=== PATIENT | female | born 1945 | race Caucasian/White ===

== ENCOUNTER → 2017-01-12 | Outpatient (CLI) | payer MEDICARE, BC ==
--- NOTE | 2017-01-12 15:58 | REPMRS ---
Patient History The patient states she had a clinical breast exam in 01/16 Patient is postmenopausal. No known family history of cancer. Benign excisional biopsy of the left breast, 1992. Digital Woman Screen Mammo: January 12, 2017 - Exam #: [id number] Bilateral CC and MLO view(s) were taken. Technologist: Dione Pereira, Technologist Prior study comparison: January 12, 2016, digital woman screen mammo performed at [facility]. January 08, 2015, digital woman screen mammo performed at [facility]. FINDINGS: There are scattered fibroglandular densities. There has been no change in the appearance of the mammogram from the prior studies. There is a mild amount of residual fibroglandular tissue which is fairly symmetric. There is no interval development of dominant mass, architectural distortion, or clustered microcalcification suggestive of malignancy. ASSESSMENT: BI-RADS/ACR category 1 mammogram. Negative. Recommendation Routine screening mammogram in 1 year (for women over age 40). This mammogram was interpreted with the aid of an FDA-approved computer-aided dectection system. Electronically Signed By: Sandeep Tate MD 01/12/17 0361
== END ==
LOC: M WHC 07:36
PROVIDERS: ATTEND Nurse Practitioner Women's Health
DX: Z12.31 Encounter for screening mammogram for malignant neoplasm of breast (principal); M85.80 Other specified disorders of bone density and structure, unspecified site; Z78.0 Asymptomatic menopausal state; Z01.419 Encounter for gynecological examination (general) (routine) without abnormal findings; Z12.39 Encounter for other screening for malignant neoplasm of breast; Z12.11 Encounter for screening for malignant neoplasm of colon
CPT/HCPCS: 82270; G0202

== ENCOUNTER → 2017-01-20 | Outpatient (CLI) | payer MEDICARE, BC ==
--- NOTE | 2017-01-24 08:49 | DEXA ---
AP SPINE L1 - L4 1.015 -1.5 0.0 LT FEMUR TOTAL 0.839 -1.3 -0.1 RT FEMUR TOTAL 0.799 -1.7 -0.4 TOTAL BODY TOTAL OTHER DUAL FEMUR FRAX* ASSESSMENT Risk factors: None 10 year probability of fracture Major osteoporotic fracture 11.0 % Hip fracture 1.9 % COMMENTS: There is low bone density of the spine and hips. The decreased density of the spine does represent a significant change. The decreased density of the left hip does not represent a significant change. The increased density of the right hip does not represent a significant change. The density of the spine has decreased 5.4% since the initial exam on 06/2005. The spine density has decreased 4.2% since the most recent exam on 01/2014. The density of the left hip has increased 0.4% since the initial exam on 06/2005. The density of the left hip has decreased 0.9% since the most recent exam on 2013. The density of the right hip has decreased 2.3% since the initial exam on 2004. The density of the right hip has increased 0.4% since the most recent exam on 2013. FOLLOW-UP: Recommendation for the next bone density exam: 2 years. TISHA
== END ==
LOC: M WHC 11:12
PROVIDERS: ATTEND Nurse Practitioner Women's Health
DX: M85.80 Other specified disorders of bone density and structure, unspecified site (principal); Z78.0 Asymptomatic menopausal state

== ENCOUNTER 2017-12-27 08:57 | Day surgery (SDC) | payer MEDICARE, BC ==
[~2017-12-27 08:57] MED LIST: ACETAMINOPHEN 325 MG TAB PO; BSS with VANC/TOB/EPI for EYE CASES IR; HEALON DUET (HEALON 10MG/ML 0.55ML & HEALON ENDOCOAT 30MG/ML 0.85ML) As Ordered; LIDOCAINE 1% SDV 5 ML VIAL As Ordered; MOXIFLOXACIN IN BSS 0.25MG/0.25ML INTRACAMERAL INJ (OR EYE ONLY)(J2280) As Ordered; PHENYLEPHRINE HCL 10 % OPHTH. SOL 5ML XX; POVIDONE-IODINE 5% OPHTH PREP SOL 30ML As Ordered; TRIAMCINOLONE PRES FR 40 MG/ML 1ML(TRIESENCE)(OR EYE ONLY)(J3300 PER 1MG) As Ordered
[2017-12-27] MEDS ORDERED: fentaNYL 100 MCG/2 ML INJECTION (J3010) As Ordered ×2 (09:24)
[2017-12-27] MEDS: LIDOCAINE 3.5 % 1ML OPHTH TOPICAL GEL OU ×2 (09:25)
[2017-12-27] MEDS: PHENYLEPHRINE 2.5% OPHTH SOL 2ML XX ×2 (09:25)
[2017-12-27] MEDS: OFLOXACIN 0.3 % (OCUFLOX) OPTH SOL 5ML XX ×2 (09:25)
[2017-12-27] MEDS ORDERED: MIDAZOLAM INJ 2 MG/2 ML VIAL (J2250) As Ordered ×2 (09:25)
[2017-12-27] MEDS: CYCLOPENTOLATE 2% OPHTH SOLN 2ML BTL XX ×2 (09:26)
[2017-12-27] MEDS: TROPICAMIDE 1% OPHTH SOLN 2ML XX ×2 (09:26)
[2017-12-27] MEDS ORDERED: TRIMETHOBENZAMIDE 300 MG CAP PO ×2 (10:30)
[2017-12-27] MEDS: AcetaZOLAMIDE 500 MG ER CAP PO ×2 (10:32)
== END 2017-12-27 10:50 | disposition home or self-care (01) ==
LOC: M SDC 08:57
DX: H25.9 Unspecified age-related cataract (principal); G47.33 Obstructive sleep apnea (adult) (pediatric); Z79.899 Other long term (current) drug therapy
CPT/HCPCS: 66984

== ENCOUNTER → 2018-01-16 | Outpatient (CLI) | payer MEDICARE, BC | LOC: M WHC 13:18 | DX: Z12.31 Encounter for screening mammogram for malignant neoplasm of breast (principal); Z78.0 Asymptomatic menopausal state; Z92.89 Personal history of other medical treatment | CPT/HCPCS: 77067 ==

== ENCOUNTER 2018-01-17 07:57 | Day surgery (SDC) | payer MEDICARE, BC ==
[~2018-01-17 07:57] MED LIST changes: -BSS with VANC/TOB/EPI for EYE CASES IR; -HEALON DUET (HEALON 10MG/ML 0.55ML & HEALON ENDOCOAT 30MG/ML 0.85ML) As Ordered; -LIDOCAINE 1% SDV 5 ML VIAL As Ordered; -MOXIFLOXACIN IN BSS 0.25MG/0.25ML INTRACAMERAL INJ (OR EYE ONLY)(J2280) As Ordered; +PHENYLEPHRINE HCL 10 % OPHTH. SOL 5ML OS; -PHENYLEPHRINE HCL 10 % OPHTH. SOL 5ML XX; -POVIDONE-IODINE 5% OPHTH PREP SOL 30ML As Ordered; -TRIAMCINOLONE PRES FR 40 MG/ML 1ML(TRIESENCE)(OR EYE ONLY)(J3300 PER 1MG) As Ordered
[2018-01-17] MEDS: TROPICAMIDE 1% OPHTH SOLN 2ML OS (08:52)
[2018-01-17] MEDS: OFLOXACIN 0.3 % (OCUFLOX) OPTH SOL 5ML OS (08:52)
[2018-01-17] MEDS: PHENYLEPHRINE 2.5% OPHTH SOL 2ML OS (08:52)
[2018-01-17] MEDS: CYCLOPENTOLATE 2% OPHTH SOLN 2ML BTL OS (08:52)
[2018-01-17] MEDS: LIDOCAINE 3.5 % 1ML OPHTH TOPICAL GEL OU (08:53)
[2018-01-17] MEDS ORDERED: MIDAZOLAM INJ 2 MG/2 ML VIAL (J2250) As Ordered (10:08)
[2018-01-17] MEDS ORDERED: fentaNYL 100 MCG/2 ML INJECTION (J3010) As Ordered (10:08)
[2018-01-17] MEDS: POVIDONE-IODINE 5% OPHTH PREP SOL 30ML As Ordered (10:41)
[2018-01-17] MEDS: MOXIFLOXACIN IN BSS 0.25MG/0.25ML INTRACAMERAL INJ (OR EYE ONLY)(J2280) As Ordered (10:43)
[2018-01-17] MEDS: TRIAMCINOLONE PRES FR 40 MG/ML 1ML(TRIESENCE)(OR EYE ONLY)(J3300 PER 1MG) As Ordered (10:43)
[2018-01-17] MEDS: HEALON DUET (HEALON 10MG/ML 0.55ML & HEALON ENDOCOAT 30MG/ML 0.85ML) As Ordered (10:43)
[2018-01-17] MEDS: BSS with VANC/TOB/EPI for EYE CASES IR (10:43)
[2018-01-17] MEDS: LIDOCAINE 1% SDV 5 ML VIAL As Ordered (10:43)
[2018-01-17] MEDS: LIDOCAINE 2% W/EPIN INJ 20ML **PRES FREE XX (10:44)
[2018-01-17] MEDS ORDERED: AcetaZOLAMIDE 500 MG ER CAP As Ordered (11:00)
[2018-01-17] MEDS: AcetaZOLAMIDE 500 MG ER CAP PO (11:05)
[2018-01-17] MEDS ORDERED: ONDANSETRON 4MG/2ML VIAL (J2405) IV (11:30)
[2018-01-17] MEDS ORDERED: LR 1,000 ML IV (11:30)
[2018-01-17] MEDS ORDERED: TRIMETHOBENZAMIDE 300 MG CAP PO (11:30)
[2018-01-17] MEDS ORDERED: ACETAMINOPHEN TAB 650MG DOSE (2X325MG) PO (11:30)
== END 2018-01-17 11:22 | disposition home or self-care (01) ==
LOC: M SDC 07:57
DX: H26.9 Unspecified cataract (principal); G47.30 Sleep apnea, unspecified; Z79.899 Other long term (current) drug therapy
CPT/HCPCS: 66984

== ENCOUNTER → 2019-01-24 | Outpatient (CLI) | payer MEDICARE, BC ==
[~2019-01-24] MED LIST changes: -ACETAMINOPHEN 325 MG TAB PO; -PHENYLEPHRINE HCL 10 % OPHTH. SOL 5ML OS; +VITA100067 PO; +ZOLO50TA PO
--- NOTE | 2019-01-24 15:00 | REPMRS ---
Patient History The patient states she had a clinical breast exam in 12/2018. No known family history of cancer. Benign excisional biopsy of the left breast, 1992. 3D TOMOSYNTHESIS WAS PERFORMED.. Digital Woman Screen Mammo: January 24, 2019 - Exam #: [id number] Bilateral CC and MLO view(s) were taken. Technologist: Nissa Mclain, Technologist Prior study comparison: January 16, 2018, digital woman screen mammo performed at [facility]. January 12, 2017, digital woman screen mammo performed at [facility]. FINDINGS: The breast tissue is heterogeneously dense. This may lower the sensitivity of mammography. There has been no change in the appearance of the mammogram from the prior studies. There is a moderate amount of residual fibroglandular tissue which is fairly symmetric. There is no interval development of dominant mass, areas of architectural distortion, or clustered microcalcification typical of malignancy. Assessment: BI-RADS/ACR category 1 mammogram. Negative Mammogram. Recommendation Routine screening mammogram in 1 year (for women over age 40). This mammogram was interpreted with the aid of an FDA-approved computer-aided dectection system. Electronically Signed By: Sandeep Tate MD 01/24/19 0422
== END ==
LOC: M WHC 13:36
PROVIDERS: ATTEND Nurse Practitioner Women's Health
DX: Z12.31 Encounter for screening mammogram for malignant neoplasm of breast (principal); Z86.018 Personal history of other benign neoplasm

== ENCOUNTER → 2020-04-09 | Outpatient (CLI) | payer MEDICARE, BC ==
--- NOTE | 2020-04-09 15:42 | REPMRS ---
Patient History The patient states she has not had a clinical breast exam in over a year. No known family history of cancer. Benign excisional biopsy of the left breast, 1992. 3D TOMOSYNTHESIS WAS PERFORMED. [facility] lifetime risk for breast cancer is 3.8%. ROMANA Cabrera. Digital Woman Screen Mammo: April 09, 2020 - Exam #: [id number] Bilateral CC and MLO view(s) were taken. Technologist: Ashley Easley, Technologist Prior study comparison: January 24, 2019, bilateral digital woman screen mammo performed at [facility]. January 16, 2018, digital woman screen mammo performed at [facility]. FINDINGS: The breast tissue is heterogeneously dense. This may lower the sensitivity of mammography. There has been no change in the appearance of the mammogram from the prior studies. There is a moderate amount of residual fibroglandular tissue which is fairly symmetric. There is no interval development of dominant mass, areas of architectural distortion, or clustered microcalcification typical of malignancy. Assessment: BI-RADS/ACR category 1 mammogram. Negative Mammogram. Recommendation Routine screening mammogram in 1 year (for women over age 40). This mammogram was interpreted with the aid of an FDA-approved computer-aided dectection system. Electronically Signed By: Sandeep Tate MD 04/09/20 [id number]
== END ==
LOC: M WHC 13:59
PROVIDERS: ATTEND Nurse Practitioner Women's Health
DX: Z12.31 Encounter for screening mammogram for malignant neoplasm of breast (principal)

== ENCOUNTER → 2021-04-12 | Outpatient (CLI) | payer MEDICARE, BC ==
--- NOTE | 2021-04-12 15:14 | REPMRS ---
Patient History The patient states she has not had a clinical breast exam in over a year. No known family history of cancer. Benign excisional biopsy of the left breast, 1992. No breast complaints today Patient signed the MRS sheet Priors on PACS Patient Identification Verified Digital Woman Screen Mammo: April 12, 2021 - Exam #: [id number] Bilateral CC and MLO view(s) were taken. Technologist: Ashley Easley, Technologist Prior study comparison: April 09, 2020, bilateral digital woman screen mammo performed at [facility]. January 24, 2019, bilateral digital woman screen mammo performed at [facility]. FINDINGS: There are scattered fibroglandular densities. Screening. Digital screening (2D) mammography was performed bilaterally in the CC and MLO projections. Additionally, breast tomosynthesis (3D mammography) was performed bilaterally in the CC and MLO projections. Todays exam was compared to the prior exam/exams. By history, the patient has no complaints of a palpable breast abnormality or other significant breast complaints. The breasts are unchanged in size and shape. There are no lissa-soft tissue densities or spiculated masses. There is no internal architectural distortion.Once again, stable benign appearing calcifications are seen. There are no suspicious lissa-calcific clusters. Skin thickening or nipple retraction is not present. IMPRESSION: BI-RADS Category 2- Benign Findings. There is no evidence of malignant alteration of the breasts. Followup examination recommended in one year. The Volpara volumetric breast density category is B, there are scattered areas of fibroglandular densities. This mammogram was read with the assistance of [facility] [employer],an FDA approved computer aided detection system for mammography. The lifetime Tyrer-Cuzick score is 3.6 % Negative x-ray reports should not delay surgical consultation if a dominant or clinically suspicious mass is present. Not all breast cancers can be identified by mammography. Therefore, we recommend that you continue to perform regular breast self-examination and physical examination and then promptly contact your physician of any concerns or changes. Adenosis and dense breasts may obscure an underlying neoplasm. Assessment: BI-RADS/ACR category 2 mammogram. Benign Findings. Recommendation Routine screening mammogram of both breasts in 1 year. Electronically Signed By: Ming Gupta DO 04/12/21 0380
== END ==
LOC: M WHC 13:30
PROVIDERS: ATTEND Nurse Practitioner Women's Health
DX: Z12.31 Encounter for screening mammogram for malignant neoplasm of breast (principal)

== ENCOUNTER → 2022-06-23 | Outpatient (CLI) | payer MEDICARE, BC | LOC: M WHC 08:27 | PROVIDERS: ATTEND Nurse Practitioner Family | DX: Z12.31 Encounter for screening mammogram for malignant neoplasm of breast (principal) ==

== ENCOUNTER → 2023-08-15 | Outpatient (CLI) | payer MEDICARE, BC | LOC: M WHC 13:25 | PROVIDERS: ATTEND Nurse Practitioner Family | DX: Z12.31 Encounter for screening mammogram for malignant neoplasm of breast (principal) ==

== ENCOUNTER → 2024-09-02 | Outpatient (CLI) | payer MEDICARE, BC ==
[2024-09-02 16:40] LABS: HEMATOCRIT 43.4 % (36.0-47.0); HEMOGLOBIN 13.7 g/dl (12.0-15.5); MEAN CORPUSCULAR HEMOGLOBIN 28.7 pg (27.0-33.0); MEAN CORPUSCULAR HGB CONC 31.6 g/dl (32.0-36.5); MEAN CORPUSCULAR VOLUME 90.8 fl (80.0-96.0); PLATELET COUNT, AUTOMATED 204 10^3/uL (150-450); RED BLOOD COUNT 4.78 10^6/uL (4.00-5.40)
[2024-09-02 17:01] LABS: ALBUMIN 3.5 G/DL (3.2-5.2); BILIRUBIN,TOTAL 0.4 MG/DL (0.3-1.2); CALCIUM LEVEL 10.2 MG/DL (8.3-10.6); CREATININE FOR GFR 1.27 MG/DL (0.55-1.30); GLOMERULAR FILTRATION RATE 43.4 (>39); POTASSIUM SERUM 4.6 MMOL/L (3.5-5.1); TOTAL PROTEIN 6.8 G/DL (5.7-8.2)
[2024-09-03 07:00] LABS: WHITE BLOOD COUNT 5.6 10^3/uL (4.0-10.0)
== END ==
LOC: M WUC 13:57
PROVIDERS: ATTEND Physician Assistant
DX: E78.5 Hyperlipidemia, unspecified (principal)

== ENCOUNTER → 2025-04-08 | Outpatient (CLI) | payer MEDICARE, BC | LOC: M WUC 15:36 | PROVIDERS: ATTEND Physician Assistant | DX: M54.2 Cervicalgia (principal) ==